=== PATIENT | male | born 1975 | race Caucasian/White ===

== ENCOUNTER 2019-03-08 15:54 | Emergency (ER) | payer OTHER ==
[~2019-03-08] VITALS: Ht 180.3 cm; Wt 86.2 kg
--- NOTE | 2019-03-08 16:57 | NUR ---
Patient discharged to home in stable conditon. Written and verbal after care instructions given to patient. Patient verbalizes understanding of instructions.
== END 2019-03-08 17:01 | disposition home or self-care (01) ==
LOC: ER 15:54
DX: N49.2 Inflammatory disorders of scrotum (principal); Z88.1 Allergy status to other antibiotic agents
CPT/HCPCS: A4663